=== PATIENT | male | born 1980 | race Caucasian/White ===

== ENCOUNTER 2018-04-04 11:15 | Emergency (ER) | payer SELFPAY ==
--- NOTE | 2018-04-04 12:28 | UC ---
Abdominal Pain Male HPI - HPI Summary HPI Summary: 37 year old male with increased stress and has vomited from this . UNDER A LOT OF STRESS. SPOKE WITH pcp ABOUT MEDS ABOUT 6 WEEKS AGO AND WAS TO START WELLBUTRIN BUT NEVER DID HE ALSO smokes and wants to try to quit. denies SI/HI. missed 1 day of work from this. would like note for work to return - History of Current Complaint Chief Complaint: UCGeneralIllness Stated Complaint: ANXIOUS,VOMITING Time Seen by Provider: 04/04/18 12:03 Hx Obtained From: Patient Severity Initially: Mild Severity Currently: Moderate Pain Intensity: 0 - Allergies/Home Medications Allergies/Adverse Reactions: Allergies Allergy/AdvReac Type Severity Reaction Status Date / Time No Known Allergies Allergy Verified 04/04/18 12:11 PMH/Surg Hx/FS Hx/Imm Hx Previously Healthy: Yes Psychological History: Anxiety - Surgical History Surgical History: None - Family History Known Family History: Positive: None - Social History Occupation: Employed Full-time Alcohol Use: Occasionally Substance Use Type: None Smoking Status (MU): Heavy Every Day Tobacco Smoker Cessation Counseling: Patient Advised to Stop Review of Systems Gastrointestinal: Vomiting Psychological: Anxious Is Patient Immunocompromised?: No All Other Systems Reviewed And Are Negative: Yes Physical Exam Triage Information Reviewed: Yes Appearance: Well-Appearing, No Pain Distress, Well-Nourished Vital Signs: Initial Vital Signs Temp 97.8 F 04/04/18 12:05 Pulse 110 04/04/18 12:05 Resp 18 04/04/18 12:05 BP 134/80 04/04/18 12:05 Pulse Ox 98 04/04/18 12:05 Vital Signs Reviewed: Yes Eye Exam: Normal ENT Exam: Normal Dental Exam: Normal Neck exam: Normal Neck: Positive: 1 Respiratory Exam: Normal Cardiovascular Exam: Normal Abdominal Exam: Normal Musculoskeletal Exam: Normal Neurological Exam: Normal Psychological Exam: Normal Skin Exam: Normal Abd Pain Male Course/Dx - Course Course Of Treatment: KELECHI with smoking - so anxious yesterday he vomited - no blood in vomit, not due to Etoh. has increased anxiety from work, child who had OD recently, . No SI no HI. just needs work note. no acute concerns otherwise. he wants to start wellbutrin which was given by PCP and we will offer small amount of this med for KELECHI and tobacco use disorder. he is aware of [facility] and se OF THIS MED - Differential Dx/Clinical Impression Provider Diagnoses: anxiety. smoking Discharge - Sign-Out/Discharge Documenting (check all that apply): Discharge/Admit/Transfer - Discharge Plan Condition: Good Disposition: HOME Referrals: No Primary Care Phys,NOPCP [Primary Care Provider] - - Billing Disposition and Condition Condition: GOOD Disposition: HOME
== END 2018-04-04 12:45 | disposition home or self-care (01) ==
LOC: UCEAST 11:15
DX: F41.9 Anxiety disorder, unspecified (principal); F17.210 Nicotine dependence, cigarettes, uncomplicated
CPT/HCPCS: 99202; G0463